=== PATIENT | female | born 1990 | race Caucasian/White ===

== ENCOUNTER 2019-09-05 01:14 | Emergency (ER) | payer SELFPAY ==
[~2019-09-05] VITALS: Ht 167.6 cm; Wt 54.0 kg
[2019-09-05 01:14] VITALS: BP 117/77
--- NOTE | 2019-09-05 01:28 | PHYS DOC ---
Past History Past Medical History Eczema General Adult EDM: Chief Complaint: ALLERGIC REACTION HPI: HPI: ..." I got this rash on my cheeks... Then I noticed with it on my arms... It is itchy... I got worried... And could not sleep.... Only thing I know it that is different I ate celery seeds with my dad's egg salad.... No other new soaps or exposures.... I did take 4 Benadryl..but that has not helped yet...." Patient is a 29 year old female who presents with above hx and complaints of rash. Only new exposure patient can think of is ingestion of celery seeds that was mixed with her father's egg salad. Patient has never eaten celery seeds before. Patient denies any new soaps or other exposures. 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 Patient recently traveled from [place] to [facility]. Patient denies any other exposures. Did do a run this afternoon but there is no rash on her lower legs that were exposed. Patient up-to-date with vaccinations. Patient has not had any recent overseas assignments. Review of Systems: Review of Systems: Constitutional: Denies fever or chills Eyes: Denies change in visual acuity HENT: Denies nasal congestion or sore throat Respiratory: Denies cough or shortness of breath Cardiovascular: Denies chest pain or edema GI: Denies abdominal pain, nausea, vomiting, bloody stools or diarrhea : Denies dysuria Musculoskeletal: Denies back pain or joint pain Integument: History of rash Neurologic: Denies headache, focal weakness or sensory changes Endocrine: Denies polyuria or polydipsia Lymphatic: Denies swollen glands Psychiatric: Denies depression or anxiety Heart Score: Risk Factors: Risk Factors: DM, Current or recent (<one month) smoker, HTN, HLP, family history of CAD, obesity. Risk Scores: Score 0 - 3: 2.5% MACE over next 6 weeks - Discharge Home Score 4 - 6: 20.3% MACE over next 6 weeks - Admit for Clinical Observation Score 7 - 10: 72.7% MACE over next 6 weeks - Early Invasive Strategies Family History: Family History: Noncontributory Current Medications: Current Meds: See nursing for home meds Allergies: Allergies: No known drug allergies Physical Exam: PE: Constitutional: Well developed, well nourished, no acute distress, non-toxic appearance. [] HENT: Normocephalic, atraumatic, bilateral external ears normal, oropharynx moist, no oral exudates, nose normal. [] Eyes: PERRLA, EOMI, conjunctiva normal, no discharge. [] Neck: Normal range of motion, no tenderness, supple, no stridor. [] Cardiovascular:Heart rate regular rhythm, no murmur [] Lungs & Thorax: Bilateral breath sounds clear to auscultation [] Abdomen: Bowel sounds normal, soft, no tenderness, no masses, no pulsatile masses. [] Skin: Warm, dry, has erythema, or a mild rash to facial cheeks and bilateral forearms. Back: No tenderness, no CVA tenderness. [] Extremities: No tenderness, no cyanosis, no clubbing, ROM intact, no edema. [] Neurologic: Alert and oriented X 3, normal motor function, normal sensory function, no focal deficits noted. [] Psychologic: Affect anxious, judgement normal, mood normal. [] EKG: EKG: [] Radiology/Procedures: Radiology/Procedures: [] Course & Med Decision Making: Course & Med Decision Making Pertinent Labs and Imaging studies reviewed. (See chart for details) Patient to attempt to identify new soaps lotions exposures foods that may have caused her allergic reaction. Patient take prednisone 50 mg a day for 5 days. Patient to take Benadryl 25 to 50 mg up to 4 times a day for itching. Patient take Pepcid 20 mg a day for 10 days. Patient advised if celery seeds were the source of her allergic reaction that she will continue until they are passed in her stool. Patient return if any concerns. Patient follow-up with primary care. Patient to practice self isolation. Wear a mask when out. Avoid crowds. Follow [facility] for up-to-date information on coronavirus Impression: 1. Rash 2. History of eczema 3. Suspect allergic reaction [] Dragon Disclaimer: Ahsanon Disclaimer: This electronic medical record was generated, in whole or in part, using a voice recognition dictation system. Departure Departure: Disposition: 01 HOME/RESIDENCE PRIOR TO ADM Condition: STABLE Referrals: PCP,NO (PCP) Scripts Famotidine (PEPCID) 20 Mg Tablet 20 MG PO DAILY for allergic reaction for 10 Days, #10 TAB Prov: SIM ALVES MD 09/05/19 Prednisone (PREDNISONE) 50 Mg Tablet 50 MG PO DAILY for allergic for 5 Days, #5 TAB Prov: SIM ALVES MD 09/05/19 Dragon Disclaimer This chart was dictated in whole or in part using Voice Recognition software in a busy, high-work load, and often noisy Emergency Department environment. It may contain unintended and wholly unrecognized errors or omissions. SIM ALVES MD Sep 05, 2019 01:28
[2019-09-05] MEDS ORDERED: MAGNESIUM HYDROXIDE 2,400 MG/30 ML ORAL.SUSP. ONE (01:40)
[2019-09-05] MEDS ORDERED: FAMOTIDINE 20 MG TABLET ONE (01:40)
[2019-09-05] MEDS ORDERED: predniSONE 10 MG TABLET ONE (01:41)
[2019-09-05] MEDS ORDERED: FAMO-63 PO (01:44)
[2019-09-05] MEDS ORDERED: PRED50TA PO (01:44)
[2019-09-05] MEDS ORDERED: FAMOTIDINE 20 MG TABLET PO ONE (01:45)
[2019-09-05] MEDS ORDERED: predniSONE 10 MG TABLET PO ONE (01:45)
[2019-09-05] MEDS ORDERED: MAGNESIUM HYDROXIDE 2,400 MG/30 ML ORAL.SUSP. PO ONE (01:45)
== END 2019-09-05 01:48 | disposition home or self-care (01) ==
LOC: ER 01:14
DX: R21 Rash and other nonspecific skin eruption (principal)
CPT/HCPCS: 99284; J7512